=== PATIENT | female | born 1995 | race Caucasian/White ===

== ENCOUNTER 2023-11-20 12:33 | Outpatient (OUT) | payer OTHER, SELFPAY ==
[2023-11-21 05:08] LABS: HIV Ab/p24 Ag Screen Non Reactive (Non Reactive)
[2023-11-21 06:10] LABS: HBsAg Screen Negative (Negative)
[2023-11-21 12:09] LABS: Rapid Plasma Reagin, Quant Non Reactive titer (NonRea<1:1)
== END 2023-11-20 12:34 | disposition home or self-care (01) ==
LOC: LAB 12:39
PROVIDERS: PCP Obstetrics & Gynecology; Visit Provider Obstetrics & Gynecology
DX: Z20.2 Contact with and (suspected) exposure to infections with a predominantly sexual mode of transmission (principal)
CPT/HCPCS: 36415; 86592; 87340; 87389